=== PATIENT | male | born 1965 | race Caucasian/White ===

== ENCOUNTER 2021-05-21 13:28 | Inpatient (IN) | payer OTHER ==
[~2021-05-21] VITALS: Ht 182.9 cm; Wt 111.1 kg
[2021-05-21 13:30] VITALS: BP 169/84
[2021-05-21 14:24] LABS: ABSOLUTE NEUTROPHILS 2.8 thou/uL (1.4-8.2); BASOPHILS 0.9 % (0.0-2.0); HEMATOCRIT 45.1 % (42.0-52.0); HEMOGLOBIN 15.4 gm/dL (14.0-18.0); LYMPHOCYTES 29.5 % (24.0-44.0); MCH 29.6 pg (26.0-34.0); MCHC 34.2 g/dL (28.0-37.0); MCV 86.7 fL (80.0-100.0); MONOCYTES 8.6 % (1.0-8.0); PLATELET COUNT 197 thou/uL (150-400); RDW 13.7 % (10.5-14.5); WBC 4.7 thou/uL (4.0-11.0)
[2021-05-21 14:33] LABS: CALCIUM 9.1 mg/dL (8.5-10.1); CREATININE 1.1 mg/dL (0.7-1.3); POTASSIUM 4.1 mmol/L (3.5-5.1)
[2021-05-21 20:15] VITALS: BP 143/72
[2021-05-21 20:32] LABS: HEMATOCRIT 41.6 % (42.0-52.0); HEMOGLOBIN 14.4 gm/dL (14.0-18.0); MCH 30.1 pg (26.0-34.0); MCHC 34.6 g/dL (28.0-37.0); MCV 86.7 fL (80.0-100.0); RBC 4.79 mil/uL (4.50-6.00); RDW 13.6 % (10.5-14.5); WBC 4.2 thou/uL (4.0-11.0)
[2021-05-21 20:47] LABS: PROTIME 10.9 Seconds (10.5-12.1)
[2021-05-22 04:45] VITALS: BP 122/76
--- NOTE | 2021-05-22 05:14 | NUR ---
ADMITTED THIS PATIENT FROM THE EMERGENCY ON 05/21/21 AT 2050H.ON ROOM AIR BREATHING SPONTANEOUSLY.NOT IN DISTRESS.RECEIVED CALL FROM LAB ABOUT CRITICALL HIGH TROPONIN-[address] FRANKLIN AROUND 2119H.HE TOLD TO INFORM DR. LAROSE.DR. LAROSE INFORMED AND HE TOLD THAT HEPARIN SHOULD BE STARTED IT WAS NOT STARTED IN THE EMERGENCY.NITROGLYCERIN TOPICAL ALSO APPLIED PATIENT WAS HAVING ON AND OFF CHEST PAIN.HEPARIN BOLUS AND INFUSION WAS INITIATED AT AROUND 0H.DR. LAROSE CALLED BACK AROUND 2219 TO CHECK ON PATIENT AND PATIENT IS FEELING BETTER.ADMISSION COMPLETED.ALL NEEDS ATTENDED. PER DR. FRANKLIN, NO NEED TO INFORM HIM FOR HIGH TROPONIN LEVEL.PATIENT CONTINOUSLY MONITORED.FOLLOWED HEPARIN PROTOCOL.
[2021-05-22 08:11] VITALS: BP 143/78
[2021-05-22 09:12] LABS: CHOLESTEROL 237 mg/dL (<200); HDL CHOLESTEROL 68 mg/dL (>40); LDL CHOLESTEROL 157 mg/dL (<100); TC:HDL 3.5 Ratio (Not establshd); TRIGLYCERIDE 63 mg/dL (<150); VLDL 13 mg/dL (<40)
[2021-05-22 12:09] VITALS: BP 140/80
--- NOTE | 2021-05-22 15:48 | 2DMMODE ---
[facility] [place] [address] 2 D/M-MODE ECHOCARDIOGRAM Name: TYLER MONTANEZ Room #: 208-P ADM IN M.R.#: [id number] Admission: 05/21/21 Attend Phys: Zhao Alarcon MD Discharge: Date of : 61 Report #: [id number] THIS REPORT FOR: cc: Zhao Alarcon MD, Neal A. MD Lammoglia, Francisco J. MD ~ APPROVED REPORT Study performed: 05/22/2021 14:21:25 EXAM: Comprehensive 2D, Doppler, and color-flow Echocardiogram Patient Location: Bedside Room #: 208 Status: on-call BSA: 2.32 HR: 64 bpm BP: 140/80 mmHg Rhythm: NSR Other Information Study Quality: Adequate Risk Factors: Cardiac Risk Factors: HTN Indications Dyspnea CAD Elevated Troponin Chest Pain 2D Dimensions RVDd: 42.21 mm IVSd: 8.95 (7-11mm) LVOT Diam: 20.00 (18-24mm) LVDd: 44.34 mm PWd: 11.39 (7-11mm) LVDs: 32.05 (25-40mm) Aortic Root: 31.77 mm LV Single Plane 4CH: 48.07 % LV Single Plane 2CH: 50.72 % Biplane EF: 49.1 % Volumes Left Atrial Volume (Systole) [facility] [address] [place] [address] 2 D/M-MODE ECHOCARDIOGRAM Name: TYLER MONTANEZ Room #: 208-P ADM IN M.R.#: [id number] Admission: 05/21/21 Attend Phys: Zhao Alarcon, Discharge: Date of : 61 Report #: [id number] Single Plane 4CH: 28.51 mL Single Plane 2CH: 54.63 mL LA ESV Index: 20.00 mL/m2 Aortic Valve AoV Peak Serg.: 1.10 m/s AO Peak Gr.: 4.86 mmHg LVOT Max P.43 mmHg LVOT Max V: 0.93 m/s GIRMA Vmax: 2.68 cm2 Mitral Valve E/A Ratio: 0.8 MV Decel. Time: 265.10 ms MV E Max Serg.: 0.64 m/s MV A Serg.: 0.80 m/s MV PHT: 76.88 ms IVRT: 62.28 ms TDI E/Lateral E': 9.14 E/Medial E': 9.14 Medial E' Serg.: 0.07 m/s Lateral E' Serg.: 0.07 m/s Pulmonary Valve PV Peak Serg.: 1.26 m/s PV Peak Gr.: 6.33 mmHg Pulmonary Vein P Vein S: 0.31 m/s P Vein A: 0.17 m/s P Vein D: 0.34 m/s P Vein A Dur.: 121.1 msec P Vein S/D Ratio: 0.91 Tricuspid Valve RAP Estimate: 7.00 mmHg Left Ventricle The left ventricle is normal size. There is normal LV segmental wall motion. There is normal left ventricular wall thickness. Left ventricular systolic function is normal. The left ventricular ejection fraction is within the normal range. LVEF is 50-55%. Mild diastolic dysfunction is present (impaired relaxation pattern). Right Ventricle The right ventricle is normal size. The right ventricular systolic function is normal. [facility] [place] [address] [place] [address] 2 D/M-MODE ECHOCARDIOGRAM Name: TYLER MONTANEZ Room #: 208-P ADM IN M.R.#: [id number] Admission: 05/21/21 Attend Phys: Zhao Alarcon, Discharge: Date of : 61 Report #: [id number] The left atrium size is normal. The right atrium size is normal. Aortic Valve The aortic valve is normal in structure. No aortic regurgitation is present. There is no aortic valvular stenosis. Mitral Valve The mitral valve is normal in structure. Trace mitral regurgitation. No evidence of mitral valve stenosis. Tricuspid Valve The tricuspid valve is normal in structure. There is no tricuspid valve regurgitation noted. Pulmonic Valve The pulmonary valve is normal in structure. There is no pulmonic valvular regurgitation. Great Vessels The aortic root is normal in size. The ascending aorta is normal in size. IVC is normal in size and collapses >50% with inspiration. Pericardium There is no pericardial effusion. <Conclusion> The left ventricle is normal size. There is normal left ventricular wall thickness. There is normal LV segmental wall motion. LVEF is 50-55%. The left atrium size is normal. The aortic valve is normal in structure. The mitral valve is normal in structure. Trace mitral regurgitation. The tricuspid valve is normal in structure. The pulmonary valve is normal in structure. The aortic root is normal in size. There is no pericardial effusion. <ELECTRONICALLY SIGNED> By: Van Longoria MD 05/22/21 1548 1548 1548 Van Longoria MD /INF
[2021-05-22 15:57] VITALS: BP 154/87
--- NOTE | 2021-05-22 16:45 | NUR ---
ASSESSMENT CHARTED - MEDS PER HORACIO. JOY DIET AND FLUIDS. PT SEEN BY DR ARSHAD TODAY AND TAKEN TO THE MANAGER PACKAGE - STENT PLACED - PT VSS POST PROCEURE CO'S OF PAIN IN GROIN AND NON CARDIAC CHEST PAIN - GIVEN TYLENOL NO RESULT - GIVEN HYDROCOONE WITH GOOD RELIEF. GROIN SITE STABLE MYNX CLOSURE PRESENT. ANGIOMAX COMPLETED AND D/C'D. HEPARIN D/C. FLUIDS DOWN TO 50CC X 10 HOURS. NO CO'S OT NAUSEA. AT THE BEDSIDE. - NO CO'S AT THE PRESENT TIME.
[2021-05-22 19:16] VITALS: BP 133/75
[2021-05-23 00:21] VITALS: BP 127/67
--- NOTE | 2021-05-23 02:58 | NUR ---
ASSUMED CARE OF PT AT 1900, PT DENIES PAIN AT THIS TIME. MYNX CLOSURE IS CLEAN, DRY AND INTACT, PT AMBULATES STEADY ON HIS FEET. 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
[2021-05-23 03:59] VITALS: BP 125/60
[2021-05-23 08:00] VITALS: BP 144/28
[2021-05-23] MEDS ORDERED: METOPROLOL SUCC50 MG PO (08:06)
[2021-05-23] MEDS ORDERED: EFFIENT10 MG PO (08:06)
[2021-05-23] MEDS ORDERED: BAYER CHEWABLE81 MG PO (08:06)
[2021-05-23] MEDS ORDERED: NITROGLYCERIN0.4 MG SUBLING (08:06)
[2021-05-23] MEDS ORDERED: LIPITOR40 MG PO (08:06)
[2021-05-23] MEDS ORDERED: LISINOPRIL2.5 MG PO (11:42)
[2021-05-23 13:30] VITALS: BP 144/78
[2021-05-23 14:22] VITALS: BP 144/78
--- NOTE | 2021-05-23 22:36 | HC ---
[facility] [place] [address] CONSULTATION Name: TYLER MONTANEZ Room #: 208-P [facility] IN M.R.#: [id number] Admission: 05/21/21 Attend Phys: Zhao Alarcon MD Discharge: 05/23/21 Date of : 61 Report #: [id number] THIS REPORT FOR: cc: Zhao Alarcon MD, Neal A. MD Lammoglia, Francisco J. MD ~ DATE OF SERVICE: 05/22/2021 REASON FOR CONSULTATION: Chest pain. ATTENDING PHYSICIAN: Dr. Zhao Alarcon. HISTORY OF PRESENT ILLNESS: This is a very pleasant 56-year-old gentleman without prior history of coronary artery disease, but with a longstanding history of psoriatic arthritis, presented for evaluation of chest discomfort. The patient has been having left shoulder pain for some time and he was attributed mostly to work in discomfort, but on the day of admission, he noted that the discomfort radiated towards the center of the chest and did not resolve. He subsequently was concerned and presented to the Emergency Room for assessment. At that point in time, no acute EKG changes were present, although his high sensitivity troponins were slightly elevated. They lior while still in the Emergency Room, although the patient's discomfort waxed and waned. Upon further questioning, the patient apparently had been having the same chest discomfort when walking with his . They decided to have improved their health and started a walking regimen recently and the discomfort was brought on by activity and relieved with rest. He had no rest symptomatology. No nocturnal symptoms. PAST MEDICAL HISTORY: Significant for: 1. AN ALLERGY TO CODEINE. 2. Psoriatic arthritis. 3. Hypertension. 4. Dyslipidemia. PAST SURGICAL HISTORY: Significant for back surgeries in 1998 and 2000. SOCIAL HISTORY: The patient is . Does not use recreational drugs. Consumes alcohol socially and has never smoked. Electrocardiogram, normal sinus rhythm, nonspecific ST-T wave changes. REVIEW OF SYSTEMS: Except for symptoms previously mentioned and those commensurate with comorbid states, the 10-point review of system is negative. LABORATORIES AND RADIOLOGIC FINDINGS: Reviewed from the chart and noted. [facility] [address] [place] [address] CONSULTATION Name: TYLER MONTANEZ Room #: 208-P [facility] IN M.R.#: [id number] Admission: 05/21/21 Attend Phys: Zhao Alarcon MD Discharge: 05/23/21 Date of : 61 Report #: [id number] PHYSICAL EXAMINATION: GENERAL: Well-developed, well-nourished white male, resting comfortably in no acute distress. HEENT: Normocephalic, atraumatic. Pupils are equal, round, reactive to light and accommodation. Extraocular muscles are intact. Sclerae and conjunctivae are anicteric. NECK: JVD is normal. Carotid upstrokes are bilaterally symmetrical. No bruits are heard. No thyromegaly. No lymphadenopathy. LUNGS: Clear to auscultation. No wheezes, rhonchi or crackles. No CVA tenderness. CARDIAC: Demonstrates a regular rhythm. Normal first and second heart sounds. No ventricular or atrial gallops, no rubs noted. No murmurs. No lifts or heaves, PMI normal. ABDOMEN: Soft, nontender, nondistended. Normal bowel sounds. EXTREMITIES: Without cyanosis, clubbing or edema. Distal pulses are intact. DTR symmetrical. NEUROLOGIC: Cranial nerves 2-12 are grossly normal and symmetrical. PSYCHIATRIC: Alert, oriented with normal affect. SKIN: Warm and dry. IMPRESSION: 1. Chest pains with positive high sensitivity troponins in an individual that does not have significant risk factors except for male gender, hypertension, dyslipidemia, but has been having symptoms compatible with unstable angina. I discussed options with the patient and view of the troponin rise, symptoms and risk, we are going to proceed directly to angiography. The risks, complications, and alternatives of cardiac catheterization, percutaneous revascularization, conscious sedation has been discussed with the patient; he voices understanding and wished to proceed. 2. Hypertension. I am going to monitor his blood pressure while hospitalized. We will need to monitor at discharge since we will be adjusting his medications due to the development of some myocardial leak, if there is indeed significant coronary artery disease. 3. Dyslipidemia. I discussed the [place] [employer] Step 1 diet. I have him picket [employer] a handout at discharge, so he can implement that in addition to his statin therapy. 4. Psoriatic arthritis. As per primary care. <ELECTRONICALLY SIGNED> By: Van Longoria MD 05/23/21 2236 1345 28 Van Longoria MD /nt
--- NOTE | 2021-05-24 07:34 | EKG ---
[address] [address] ELECTROCARDIOGRAM REPORT Name: TYLER MONTANEZ Room #: 208-P [facility] IN M.R.#: [id number] Admission: 05/21/21 Attend Phys: Zhao Alarcon MD Discharge: 05/23/21 Date of : 61 Report #: [id number] [facility] ED Test Date: 2021-05-21 Test Time: 18:01:32 Pat Name: TYLER MONTANEZ Department: Room: 208 Gender: M Rn Chronic: ARMANDO SABA : 1965 Requested By: Davion Jones Order Number: [id number] MD: Rocco Quinonez Measurements Intervals [place] Rate: 64 P: 58 HI: 172 QRS: 21 QRSD: 90 T: 44 QT: 396 QTc: 409 Interpretive Statements Sinus rhythm Left atrial enlargement RSR' in V1 or V2, probably normal variant Compared to ECG 05/21/2021 13:31:47 RSR' in V1 or V2 now present Possible ischemia no longer present Electronically Signed On 05-24-2021 7:34:34 CDT by Rocco Quinonez [email or web address] <ELECTRONICALLY SIGNED> By: Rocco Quinonez MD, FAC 05/24/21 0734 180 180 Rocco Quinonez MD, [facility] /EPI
--- NOTE | 2021-05-24 07:34 | EKG ---
[address] [address] ELECTROCARDIOGRAM REPORT Name: TYLER MONTANEZ Room #: 208-P [facility] IN M.R.#: [id number] Admission: 05/21/21 Attend Phys: Zhao Alarcon MD Discharge: 05/23/21 Date of : 61 Report #: [id number] [facility] ED Test Date: 2021-05-21 Test Time: 13:31:47 Pat Name: TYLER MONTANEZ Department: Room: 208 Gender: M Relations Director: : 1965 Requested By: Davion Jones Order Number: [id number] MD: Rocco Quinonez Measurements Intervals [place] Rate: 90 P: 70 MT: 157 QRS: 19 QRSD: 92 T: 48 QT: 365 QTc: 447 Interpretive Statements Sinus rhythm Left atrial enlargement ST depr, consider ischemia, anterolateral lds No previous ECG available for comparison Electronically Signed On 05-24-2021 7:34:14 CDT by Rocco Quinonez [email or web address] <ELECTRONICALLY SIGNED> By: Rocco Quinonez MD, [facility] 05/24/21 0734 1331 30 Rocco Quinonez MD, [facility] /EPI
--- NOTE | 2021-06-03 13:06 | CATHLAB ---
[facility] [place] [address] INVASIVE PROCEDURE REPORT Name: TYLER MONTANEZ Room #: 208-P DIS IN M.R.#: [id number] Admission: 05/21/21 Attend Phys: Zhao Alarcon MD Discharge: 05/23/21 Date of : 61 Report #: [id number] THIS REPORT FOR: cc: Zhao Alarcon MD, Neal A. MD Lammoglia, Francisco J. MD ~ APPROVED REPORT Study performed: 05/22/2021 12:19:28 Patient Details Patient Status: In-Patient Room #: 208 The patient is a 56 year-old male Event Personnel Van Longoria Supervisor [employer], Chris German RN RN, Kaycee Lamb RT(R)() Dave, Eitan Quintero RTR Monitor Procedures Performed Left Heart Cath w/or w/o Coronaries 5508210 [facility] ALETA Place w/wo Plasty Single LAD 482619 Art Access - R femoral artery* 37742 Initial Mod Sed Same Phys/QHP Gr5y 311253 19622 Mod Sed Same Phys/QHP Ea 705027 Hemostasis w/ Mynx, supervision of conscious sedation Indication Non-STEMI (>6 hrs to = 12 hrs), Chest pain Procedure Narrative The Right Groin^ was infiltrated with 1% Lidocaine subcutaneous anesthesia. A PINNACLE 6FR Sheath #[id number] sheath was inserted into the RFA^. Coronary angiography was performed using coronary diagnostic catheters. The right coronary system was accessed and visualized with a JR4 catheter. The left coronary system was accessed and visualized with a JL4 catheter. The left ventricle was accessed and visualized with a PIGTAIL catheter. Left ventricular/Aortic Valve gradient assessed via catheter pullback. Left ventriculogram was performed in 30 degree projection. Closure device was deployed with a Fr MYNXGRIP 6/7F #[id number]. The patient tolerated the procedure well and there were no complications associated with the procedure. There was no hematoma. Intraoperative Conscious Sedation [facility] [address] [place] [address] INVASIVE PROCEDURE REPORT Name: TYLER MONTANEZ Room #: 208-P [facility] IN .R.#: [id number] Admission: 05/21/21 Attend Phys: Zhao Alarcon, Discharge: 05/23/21 Date of : 61 Report #: [id number] Sedation start time: 12:54 Case end Time: 13:44 Versed 2 mg Fluoro Time: 6.28 minutes Dose: DAP 8462.50 cGycm2 1191 mGy Contrast Type and Amount: Omnipaque 160 ml Coronary Angiography The patient's coronary anatomy is left dominant. Diagnostic Cath Left Main Large-caliber vessel normal origin trifurcates into left anterior descending, left circumflex, and ramus intermedius. The left main is free of high-grade lesion although it is short in length LAD Small to moderate caliber type II vessel which courses in the interventricular sulcus. Its proximal portion is a high-grade concentric lesion of greater than 90%. The vessel then reconstitutes itself gives rise to diagonal and septal branches as it courses and tapers towards the apex terminating a small bifurcating vessel Diagonal 1 Small caliber vessel with proximal irregularities of less than 30% then reconstitutes continues with the lateral aspect of the anterior wall Diagonal 2 Diminutive size vessel Circumflex Large-caliber dominant vessel which courses in the AV groove giving rise to small first marginal branch. And continues posteriorly giving rise to posterior wall branches. No high-grade lesions are noted OM1 Small caliber vessel without significant stenosis present as it courses on the lateral aspect of the left ventricle L PDA Small caliber vessel coursing the posterior interventricular sulcus without significant lesions present there are luminal irregularities noted Right Coronary Small nondominant vessel with mild luminal irregularities Left Ventriculography Left Ventriculography was not performed. Hemodynamics The aortic pressure is 149/64 mmHg with a mean of 97 mmHg. The left ventricular pressure is 137/9 mmHg with a mean of mmHg. The left ventricular end diastolic pressure is 21 mmHg. Pullback from the left ventricle to the aorta revealed no gradient across the aortic [facility] [address] [place] [address] INVASIVE PROCEDURE REPORT Name: TYLER MONTANEZ Room #: 208-P DIS IN M.R.#: [id number] Admission: 05/21/21 Attend Phys: Zhao Alarcon, Discharge: 05/23/21 Date of : 61 Report #: [id number] valve. PCI Technique After termination of intervention indicated at the 4 Macanese system was exchanged and upsized to a 6 [place] system. A standard left guide was then engaged and angiography performed for sizing. A 014 wire was then advanced under fluoroscopic visualization distally. A 3.0 x 15 mm Medtronic ALETA stent was then positioned across the lesion. Several shots were obtained to position the stent appropriately and subsequently was deployed per standard protocol. The patient had several subsequent inflation to optimize strut dilatation and expansion to 12 camryn. Post procedure GISELL flow was GISELL I there was no loss of sidebranch since embolization intraluminal disruption was noted. Dual antiplatelet therapy was initiated as per noted in the procedure log. Patient tolerated procedure well PCI Technique Lesion Percutaneous coronary intervention was performed on the proximal left anterior descending artery segment. A LAUNCHER 6FR JL4 #[id number] Guide Catheter was used to engage the LAD ostium. A Luge Wire (J) .014 X 182CM #[id number] Interventional Guidewire was used to cross the lesion. STENT DEPLOYMENT A stent RESOLUTE DIANE OTW 3.0 X 15 #[id number] was inserted and inflated up to 12.00atm for 9seconds. Conclusion 1. Coronary disease severe, single-vessel consisting of a high-grade proximal LAD lesion 2. Normal hemodynamics 3. Successful percutaneous revascularization and primary stenting of a proximal left anterior descending lesion with a 3.0 x 15 mm Medtronic ALETA stent taken to 12 camryn Recommendations Cardiac Risk Reduction Program Medical Therapy Dual antiplatelet therapy with aspirin and prasugrel is initiated <ELECTRONICALLY SIGNED> By: Van Longoria MD 06/03/21 1305 1305 130 Van Longoria MD /INF
== END 2021-05-23 14:27 | disposition home or self-care (01) | DRG 246 ==
LOC: ER 13:28 → EROBS 18:16 → 2N 18:16
PROVIDERS: Nurse Practitioner; ADMIT Family Medicine; ATTEND Family Medicine
DX: I21.4 Non-ST elevation (NSTEMI) myocardial infarction (principal); I50.31 Acute diastolic (congestive) heart failure; I10 Essential (primary) hypertension; E78.5 Hyperlipidemia, unspecified; L40.50 Arthropathic psoriasis, unspecified; I25.10 Atherosclerotic heart disease of native coronary artery without angina pectoris; Z20.822 Contact with and (suspected) exposure to COVID-19; Z88.6 Allergy status to analgesic agent; Z79.82 Long term (current) use of aspirin; Z79.899 Other long term (current) drug therapy
CPT/HCPCS: 10081; 10194

== ENCOUNTER → 2021-07-18 | Outpatient (CLI) | payer OTHER ==
[~2021-07-18] VITALS: Ht 182.9 cm; Wt 100.7 kg
[~2021-07-18] MED LIST: BAYER CHEWABLE81 MG PO; EFFIENT10 MG PO; FUROSEMIDE 20 M20 MG PO; IMDUR 30 MG TAB30 M1 PO; KLOR-CON 1010 MEQ PO; LIPITOR40 MG PO; LISINOPRIL2.5 MG PO; METOPROLOL SUCC50 MG PO; NITROGLYCERIN0.4 MG SUBLING
[2021-07-18 10:01] VITALS: BP 135/84
[2021-07-18 10:35] LABS: EOSINOPHILS 2.4 % (0.0-3.0); HEMATOCRIT 40.6 % (42.0-52.0); HEMOGLOBIN 13.8 gm/dL (14.0-18.0); MCH 29.2 pg (26.0-34.0); MCHC 33.9 g/dL (28.0-37.0); MCV 86.1 fL (80.0-100.0); MONOCYTES 11.6 % (1.0-8.0); PLATELET COUNT 177 thou/uL (150-400); RBC 4.72 mil/uL (4.50-6.00); RDW 13.1 % (10.5-14.5); WBC 3.4 thou/uL (4.0-11.0)
[2021-07-18 10:39] LABS: CALCIUM 8.9 mg/dL (8.5-10.1); CREATININE 0.9 mg/dL (0.7-1.3)
--- NOTE | 2021-08-14 15:17 | CATHLAB ---
[facility] [place] [address] INVASIVE PROCEDURE REPORT Name: TYLER MONTANEZ Room #: REG ROJASMichelle Dhaliwal#: [id number] Admission: 07/18/21 Attend Phys: Van Longoria Discharge: Date of : 61 Report #: [id number] THIS REPORT FOR: cc: Zhao Alarcon MD, Neal A. MD Lammoglia, Francisco J. MD ~ APPROVED REPORT Study performed: 07/18/2021 14:13:49 Patient Details Patient Status: Out-Patient Room #: The patient is a 56 year-old male Event Personnel Van Longoria Clinical Care Coordinator, Betsey Moore RTR Monitor, Kaycee Lamb RT(R)() Kalyan Acosta Sarah RN engineering designer Performed Art Access - R femoral artery* Left Heart Cath w/or w/o Coronaries [id number] [facility] Hemostasis with Manual pressure 80640 Initial Mod Sed Same Phys/QHP Gr 789089 22193 Mod Sed Same Phys/QHP Ea 182649, supervision conscious sedation Indication Positive stress test, Chest pain Procedure Narrative The Right Groin^ was infiltrated with 1% Lidocaine subcutaneous anesthesia. A PINNACLE 4FR Sheath #[id number] sheath was inserted into the RFA^. Coronary angiography was performed using coronary diagnostic catheters. The right coronary system was accessed and visualized with a JR4 catheter. The left coronary system was accessed and visualized with a JL4 catheter. The left ventricle was accessed and visualized with a JR4 catheter. Hemostasis was obtained with manual pressure following sheath removal without any complications. The patient tolerated the procedure well and there were no complications associated with the procedure. There was no hematoma. Intraoperative Conscious Sedation Sedation start time: 1455 Case end Time: 1521 [facility] [address] [place] [address] INVASIVE PROCEDURE REPORT Name: TYLER MONTANEZ [facility] [id number] Admission: 07/18/21 Attend Phys: Vna Chamberlain Discharge: Date of : 61 Report #: [id number] Versed 3 mg Fluoro Time: 2.00 minutes Dose: DAP 2788.80 cGycm2 407 mGy Contrast Type and Amount: Omnipaque 50 ml Coronary Angiography The patient's coronary anatomy is left dominant. Diagnostic Cath Left Main Moderate caliber vessel normal origin bifurcates left into descending left circumflex. No high-grade lesions noted LAD Small to moderate caliber type II vessel coursing the interventricular sulcus. Gives rise to diagonal and septal branches all of which are free of high-grade disease. The LAD proper has some mild irregularities which are insignificant in size. The proximal previously placed stent is widely patent without any evidence of restenosis or thrombus formation Diagonal 1 Small vessel without significant high-grade lesion Diagonal 2 Small vessel without significant high-grade lesion Circumflex Moderate caliber nondominant vessel gives rise to early marginal branches and continues in the AV groove giving rise to a small posterior lateral marginal branch and 2 small posterior wall branches. There is mild irregularities noted in its course but no high-grade lesions are present. It continues posteriorly giving rise to the vessel to access the posterior descending artery OM1 Moderate caliber vessel significant high-grade lesions presently irregularities are noted OM2 Small caliber vessel without significant lesion L PDA Small caliber vessel without significant lesions Right Coronary Small caliber nondominant vessel without significant high-grade stenosis present Left Ventriculography Left Ventriculography was not performed. Hemodynamics The aortic pressure is 122/64 mmHg with a mean of 64 mmHg. The left ventricular pressure is 120/10 mmHg with a mean of mmHg. The left ventricular end diastolic pressure is 21 mmHg. Conclusion 1. Coronary disease previously treated with proximal LAD stenting with widely patent stent [facility] [address] [place] [address] INVASIVE PROCEDURE REPORT Name: TYLER MONTANEZ Room #: REG [facility]#: [id number] Admission: 07/18/21 Attend Phys: Van Chamberlain Discharge: Date of : 61 Report #: [id number] 2. Normal hemodynamic Recommendations 1. Continue with dual antiplatelet therapy and risk factor modification 2. Pursue other etiology for symptom <ELECTRONICALLY SIGNED> By: Van Longoria MD 08/14/21 1517 1517 1517 Van Longoria MD /INF
== END | disposition home or self-care (01) ==
LOC: CATH 08:07
PROVIDERS: ATTEND Internal Medicine
DX: R07.9 Chest pain, unspecified (principal); I25.10 Atherosclerotic heart disease of native coronary artery without angina pectoris; R94.39 Abnormal result of other cardiovascular function study; I10 Essential (primary) hypertension; E78.5 Hyperlipidemia, unspecified; Z98.890 Other specified postprocedural states; Z79.899 Other long term (current) drug therapy; Z87.891 Personal history of nicotine dependence; Z98.52 Vasectomy status; Z88.6 Allergy status to analgesic agent